=== PATIENT | male | born 1995 | race African-American/Black ===

== ENCOUNTER 2018-05-10 14:39 | Emergency (ER) | payer SELFPAY ==
[2018-05-10 14:52] VITALS: BP 132/77; PULSE 61; BMI 22.3
--- NOTE | 2018-05-10 15:14 | PDOC ---
History of Present Illness <Phi Jacques - Last Filed: 05/10/18 16:44> - General History Source: Patient Exam Limitations: No Limitations - History of Present Illness Initial Comments: 05/10/18 17:09 Patient is a 23-year-old male who presents emergency department today for a wound check to his right dorsal hand. Patient had surgical I&D done by Dr. Rodarte yesterday in our OR. Patient states that he did not want to stay for packing change today as he had things to do. Dr. Rodarte discharged him and told him to come to the ER for dressing change. Denies fevers, chills, purulent drainage, nausea and vomiting. Patient is currently taking clindamycin for the abscess. <Bree Costa - Last Filed: 05/10/18 17:13> - General Chief Complaint: Revisit,Wound Recheck Stated Complaint: REVISIT Time Seen by Provider: 05/10/18 14:48 Past History <Phi Jacques - Last Filed: 05/10/18 16:44> - Travel Traveled outside of the country in the last 30 days: No Close contact w/someone who was outside of country & ill: No - Past Medical History Asthma: Yes COPD: No - Immunization History Immunization Up to Date: Yes - Suicide/Smoking/Psychosocial Hx Smoking History: Never smoked Have you smoked in the past 12 months: No Information on smoking cessation initiated: No Hx Alcohol Use: No Drug/Substance Use Hx: Yes Substance Use Type: Marijuana <Bree Costa - Last Filed: 05/10/18 17:13> - Past Medical History Allergies/Adverse Reactions: Allergies Allergy/AdvReac Type Severity Reaction Status Date / Time No Known Allergies Allergy Verified 05/05/18 11:04 Home Medications: Ambulatory Orders Clindamycin HCl 300 mg PO TID #30 capsule 05/09/18 Ibuprofen 800 mg PO TID #30 tablet 05/10/18 Review of Systems - Review of Systems Able to Perform ROS?: Yes Comments:: 05/10/18 15:13 CONSTITUTIONAL: Absent: fever, chills, diaphoresis, generalized weakness, malaise, loss of appetite HEENT: Absent: rhinorrhea, nasal congestion, throat pain, throat swelling, difficulty swallowing, mouth swelling, ear pain, eye pain, visual Changes CARDIOVASCULAR: Absent: chest pain, loss of consciousness, palpitations, irregular heart rate, peripheral edema RESPIRATORY: Absent: cough, shortness of breath, dyspnea with exertion, orthopnea, wheezing, stridor, hemoptysis GASTROINTESTINAL: Absent: abdominal pain, abdominal distension, nausea, vomiting, diarrhea, constipation, melena, hematochezia GENITOURINARY: Absent: dysuria, frequency, urgency, hesitancy, hematuria, flank pain, genital pain MUSCULOSKELETAL: Absent: myalgia, arthralgia, joint swelling SKIN: Present: Bulky dressing to R hand. Absent: rash, itching, pallor HEMATOLOGIC/IMMUNOLOGIC: Absent: easy bleeding, easy bruising, lymphadenopathy, frequent infections ENDOCRINE: Absent: unexplained weight gain, unexplained weight loss, heat intolerance, cold intolerance NEUROLOGIC: Absent: headache, focal weakness or paresthesias, dizziness, unsteady gait, seizure, mental status changes, bladder or bowel incontinence PSYCHIATRIC: Absent: anxiety, depression, suicidal or homicidal ideation, hallucinations. Is the patient limited Moroccan proficient: No <Bree Costa - Last Filed: 05/10/18 17:13> *Physical Exam - Vital Signs Last Vital Signs Temp Pulse Resp BP Pulse Ox 61 17 132/77 100 05/10/18 14:47 05/10/18 14:47 05/10/18 14:47 05/10/18 14:47 <Phi Jacques - Last Filed: 05/10/18 16:44> - Vital Signs Last Vital Signs Temp Pulse Resp BP Pulse Ox 61 17 132/77 100 05/10/18 14:47 05/10/18 14:47 05/10/18 14:47 05/10/18 14:47 - Physical Exam Comments: 05/10/18 15:13 GENERAL: Well developed, well nourished. Awake and alert. No acute distress. NECK: Supple. Full ROM. No JVD. Carotid pulses 2+ and symmetric, without bruits. No thyromegaly. No lymphadenopathy. MUSCULOSKELETAL Normal range of motion at all joints. No bony deformities or tenderness. No CVA tenderness. EXTREMITIES: No cyanosis. No clubbing. No edema. No calf tenderness. SKIN: Two stitches present in the R dorsal hand with 2cm opening, packing in place. Serosanguanous discharge on packing. Warm and dry. Normal capillary refill. No rashes. No jaundice. NEUROLOGICAL: Alert, awake, appropriate. Cranial nerves 2-12 intact. No deficits to light touch and temperature in face, upper extremities and lower extremities. No motor deficits in the in face, upper extremities and lower extremities. Normoreflexic in the upper and lower extremities. Normal speech. Toes are down- going bilaterally. Gait is normal without ataxia. PSYCHIATRIC: Cooperative. Good eye contact. Appropriate mood and affect. <Bree Costa - Last Filed: 05/10/18 17:13> Medical Decision Making - Medical Decision Making 05/10/18 3:05pm Call placed to Dr. Satnam Rodarte, awaiting call back. 05/10/18 3:53 Second call placed to Dr. Satnam Rodarte, awaiting call back. 05/10/18 4:16pm Call returned from Dr. Rodarte, case was discussed. <Phi Jacques - Last Filed: 05/10/18 16:44> - Medical Decision Making 05/10/18 15:14 Pt is a 23 y/o M who presents for a wound check to his R hand s/p surgical drainage of a hand abscess by Dr. Rodarte. Pt states he needs his packing changed at this time -Pt able to flex and extend the hand. TTP of the R Dorsal hand. Two stitches in place with packing present to the R hand -Call placed to Dr. Rodarte to confirm care plan. 05/10/18 16:56 -Spoke with Dr. Rodarte. States he would like his patient to have the packing removed. He then recommends a dry dressing. -Packing was removed and dry dressing placed as per recommendation. Pt to keep his f/u with Dr. Rodarte for two weeks. -DC home -I discussed the physical exam findings, ancillary test results and final diagnoses with the patient. I answered all of the patient's questions. The patient was satisfied with the care received and felt comfortable with the discharge plan and treatment plan. The Patient agrees to follow up with the primary care physician/specialist within 24-72 hours. Return precautions were given. <Bree Costa - Last Filed: 05/10/18 17:13> *DC/Admit/Observation/Transfer - Attestations Scribe Attestion: 05/10/18 15:16 Documentation prepared by Phi Jacques, acting as medical care manager for TORRES Rawls. <Phi Jacques - Last Filed: 05/10/18 16:44> - Discharge Dispostion Decision to Admit order: No <Bree Costa - Last Filed: 05/10/18 17:13> Diagnosis at time of Disposition: Wound check, abscess - Discharge Dispostion Disposition: HOME Condition at time of disposition: Stable - Prescriptions Prescriptions: Ibuprofen 800 mg PO TID #30 tablet - Referrals Referrals: Jose Armando Rodarte MD [Staff Physician] - - Patient Instructions Printed Discharge Instructions: How to Care for a Surgical Wound, DI for Skin Abscess Additional Instructions: You had your packing removed today Change the dry dressing once a day You may purchase 4x4's at the pharmacy You may take 800mg of Motrin as needed for pain every 8 hours, not to exceed 3, 000mg a day Continue your antibiotics as previously prescribed Follow up with Dr. Rodarte as planned Return to the ED if you have worsening pain, fevers, or if you have any changes in your symptoms
[2018-05-10] MEDS ORDERED: IBUPROFEN 400 MG TABLET (FP) PO ONE ×2 (16:58→17:03)
== END 2018-05-10 17:09 | disposition home or self-care (01) ==
LOC: JERFT 14:39
DX: Z48.817 Encounter for surgical aftercare following surgery on the skin and subcutaneous tissue (principal); Z48.01 Encounter for change or removal of surgical wound dressing
CPT/HCPCS: 99281-25

== ENCOUNTER 2018-05-24 09:41 | Emergency (ER) | payer SELFPAY ==
[2018-05-24 09:49] VITALS: BP 114/81; PULSE 90; TEMP 98.5; BMI 25.7
--- NOTE | 2018-05-24 10:41 | PDOC ---
History of Present Illness - General Chief Complaint: Edema Stated Complaint: SWOLLEN FACE Time Seen by Provider: 05/24/18 10:34 Past History - Past Medical History Allergies/Adverse Reactions: Allergies Allergy/AdvReac Type Severity Reaction Status Date / Time Penicillins Allergy Verified 05/24/18 09:49 Home Medications: Ambulatory Orders Sulfamethoxazole/Trimethoprim [Bactrim Ds -] 1 tab PO BID #14 tablet 05/24/18 Asthma: Yes COPD: No - Immunization History Immunization Up to Date: Yes - Suicide/Smoking/Psychosocial Hx Smoking History: Never smoked Have you smoked in the past 12 months: No Hx Alcohol Use: No Drug/Substance Use Hx: Yes (MARIJUANA) Substance Use Type: Marijuana *Physical Exam - Vital Signs Last Vital Signs Temp Pulse Resp BP Pulse Ox 98.5 F 90 16 114/81 97 05/24/18 09:43 05/24/18 09:43 05/24/18 09:43 05/24/18 09:43 05/24/18 09:43 *DC/Admit/Observation/Transfer Diagnosis at time of Disposition: Cellulitis, face - Discharge Dispostion Disposition: HOME Condition at time of disposition: Stable Decision to Admit order: No - Prescriptions Prescriptions: Sulfamethoxazole/Trimethoprim [Bactrim Ds -] 1 tab PO BID #14 tablet - Referrals Referrals: Brian Roach MD [Staff Physician] - - Patient Instructions Printed Discharge Instructions: DI for Cellulitis -- Adult Additional Instructions: You have cellulitis. This is a skin infection. Please take the Bactrim twice a day for one week. Please take all the antibiotics even if you feel better. You may use warm water soaks to the area. Please do this approximately 4-5 times a day. Please avoid shaving the skin around the area of redness. You may take Motrin 800mg every 8 hours as needed for pain Please return to the ED in 1-2 days for a wound check Return to the emergency department if you have worsening redness, fevers, increasing pain, or have any changes in your symptoms. - Post Discharge Activity Forms/Work/School Notes: Back to Work
== END 2018-05-24 10:50 | disposition home or self-care (01) ==
LOC: JERFT 09:41
DX: L03.211 Cellulitis of face (principal)
CPT/HCPCS: 99281-25

== ENCOUNTER 2018-07-13 11:44 | Emergency (ER) | payer SELFPAY ==
[2018-07-13 11:54] VITALS: BP 140/75; PULSE 86; TEMP 98.2; BMI 26.5
--- NOTE | 2018-07-13 13:22 | PDOC ---
History of Present Illness - General Chief Complaint: Edema Stated Complaint: SWELLING,LIP Time Seen by Provider: 07/13/18 12:51 History Source: Patient Exam Limitations: No Limitations - History of Present Illness Initial Comments: 07/13/18 13:20 Patient patient is a 23-year-old male with no past medical history who presents to the emergency department today for cellulitis to his right upper lip. Patient states that he noticed the symptoms starting today. He states that the lip is hard and painful to the touch. Denies fevers, chills, mouth pain, difficulty chewing, nausea, vomiting and diarrhea. Past History - Travel Traveled outside of the country in the last 30 days: No Close contact w/someone who was outside of country & ill: No - Past Medical History Allergies/Adverse Reactions: Allergies Allergy/AdvReac Type Severity Reaction Status Date / Time Penicillins Allergy Verified 07/13/18 11:48 Home Medications: Ambulatory Orders Cephalexin Monohydrate [Keflex -] 500 mg PO BID #14 capsule 07/13/18 Sulfamethoxazole/Trimethoprim [Bactrim Ds -] 1 tab PO BID #14 tablet 07/13/18 Asthma: Yes COPD: No - Immunization History Immunization Up to Date: Yes - Suicide/Smoking/Psychosocial Hx Smoking History: Never smoked Have you smoked in the past 12 months: No Information on smoking cessation initiated: No Hx Alcohol Use: No Drug/Substance Use Hx: Yes (Marijuana) Substance Use Type: Marijuana Review of Systems - Review of Systems Able to Perform ROS?: Yes Comments:: 07/13/18 13:17 CONSTITUTIONAL: Absent: fever, chills, diaphoresis, generalized weakness, malaise, loss of appetite HEENT: Absent: rhinorrhea, nasal congestion, throat pain, throat swelling, difficulty swallowing, mouth swelling, ear pain, eye pain, visual Changes CARDIOVASCULAR: Absent: chest pain, loss of consciousness, palpitations, irregular heart rate, peripheral edema RESPIRATORY: Absent: cough, shortness of breath, dyspnea with exertion, orthopnea, wheezing, stridor, hemoptysis GASTROINTESTINAL: Absent: abdominal pain, abdominal distension, nausea, vomiting, diarrhea, constipation, melena, hematochezia GENITOURINARY: Absent: dysuria, frequency, urgency, hesitancy, hematuria, flank pain, genital pain MUSCULOSKELETAL: Absent: myalgia, arthralgia, joint swelling SKIN: Present: cellulitis to R upper lip Absent: rash, itching, pallor HEMATOLOGIC/IMMUNOLOGIC: Absent: easy bleeding, easy bruising, lymphadenopathy, frequent infections ENDOCRINE: Absent: unexplained weight gain, unexplained weight loss, heat intolerance, cold intolerance NEUROLOGIC: Absent: headache, focal weakness or paresthesias, dizziness, unsteady gait, seizure, mental status changes, bladder or bowel incontinence PSYCHIATRIC: Absent: anxiety, depression, suicidal or homicidal ideation, hallucinations. Is the patient limited Surinamese proficient: No *Physical Exam - Vital Signs Last Vital Signs Temp Pulse Resp BP Pulse Ox 98.2 F 86 16 140/75 99 07/13/18 11:49 07/13/18 11:49 07/13/18 11:49 07/13/18 11:49 07/13/18 11:49 - Physical Exam Comments: 07/13/18 13:18 GENERAL: Well developed, well nourished. Awake and alert. No acute distress. HEENT: Normocephalic, atraumatic. PERRLA, EOMI. No conjunctival pallor. Sclera are non- icteric. Moist mucous membranes. Oropharynx is clear. Swelling to the R upper lip. NECK: Supple. Full ROM. No JVD. Carotid pulses 2+ and symmetric, without bruits. No thyromegaly. No lymphadenopathy. SKIN: R upper lip is edematous, erythematous and indurated with open pus pocket. Does not infiltrate the buccal mucosa. Warm and dry. Normal capillary refill. No jaundice. NEUROLOGICAL: Alert, awake, appropriate. Cranial nerves 2-12 intact. No deficits to light touch and temperature in face, upper extremities and lower extremities. No motor deficits in the in face, upper extremities and lower extremities. Normoreflexic in the upper and lower extremities. Normal speech. Toes are down- going bilaterally. Gait is normal without ataxia. PSYCHIATRIC: Cooperative. Good eye contact. Appropriate mood and affect. Medical Decision Making - Medical Decision Making 07/13/18 13:20 Patient is a 23-year-old male who presents to emergency department today for swelling to his right upper lip. -On exam the right upper lip is hard, indurated and warm. This is consistent with cellulitis. -There is a head to the cellulitis. No fluctuance to drain however. -We'll prescribe Bactrim and Keflex at this time. Patient to do warm water soaks. -Primary care referral given. -Discharge home -I discussed the physical exam findings, ancillary test results and final diagnoses with the patient. I answered all of the patient's questions. The patient was satisfied with the care received and felt comfortable with the discharge plan and treatment plan. The Patient agrees to follow up with the primary care physician/specialist within 24-72 hours. Return precautions were given. *DC/Admit/Observation/Transfer Diagnosis at time of Disposition: Cellulitis, face - Discharge Dispostion Disposition: HOME Condition at time of disposition: Stable Decision to Admit order: No - Referrals Referrals: Brian Roach MD [Staff Physician] - - Patient Instructions Printed Discharge Instructions: DI for Cellulitis -- Adult Additional Instructions: You have cellulitis. This is a skin infection. Please take the Bactrim and Keflex twice a day for one week. Please take all the antibiotics even if you feel better. You may use warm water soaks to the area. Please do this approximately 4-5 times a day. Please avoid shaving the skin around the area of redness. You may take Tylenol or Motrin as needed for pain. Please follow up with your primary care doctor in 1 week. Return to the emergency department if you have worsening redness, fevers, increasing pain, or have any changes in your symptoms. - Post Discharge Activity Forms/Work/School Notes: Back to Work
== END 2018-07-13 13:28 | disposition home or self-care (01) ==
LOC: JERFT 11:44
DX: L03.211 Cellulitis of face (principal); K13.0 Diseases of lips
CPT/HCPCS: 99281-25

== ENCOUNTER 2018-12-29 11:05 | Emergency (ER) | payer SELFPAY ==
[2018-12-29 11:17] VITALS: BP 138/79; PULSE 86; TEMP 98.2; BMI 24.7
--- NOTE | 2018-12-29 12:35 | PDOC ---
History of Present Illness - General Chief Complaint: Abscess Boil Stated Complaint: ABCESS NOSE Time Seen by Provider: 12/29/18 12:16 History Source: Patient Exam Limitations: No Limitations Past History - Travel Traveled outside of the country in the last 30 days: No Close contact w/someone who was outside of country & ill: No - Past Medical History Allergies/Adverse Reactions: Allergies Allergy/AdvReac Type Severity Reaction Status Date / Time Penicillins Allergy Verified 12/29/18 11:13 Home Medications: Ambulatory Orders Cephalexin Monohydrate [Keflex -] 500 mg PO BID #14 capsule 07/13/18 Sulfamethoxazole/Trimethoprim [Bactrim Ds -] 1 tab PO BID #14 tablet 07/13/18 Cephalexin Monohydrate [Keflex -] 500 mg PO BID #14 capsule 12/29/18 Ibuprofen 600 mg PO Q6H #30 tablet 12/29/18 Sulfamethoxazole/Trimethoprim [Bactrim Ds -] 1 tab PO BID #14 tablet 12/29/18 Asthma: Yes COPD: No - Immunization History Immunization Up to Date: Yes - Suicide/Smoking/Psychosocial Hx Smoking History: Never smoked Have you smoked in the past 12 months: No Hx Alcohol Use: No Drug/Substance Use Hx: No Substance Use Type: Marijuana Review of Systems - Review of Systems Able to Perform ROS?: Yes Comments:: 12/29/18 12:32 CONSTITUTIONAL: Absent: fever, chills, diaphoresis, generalized weakness, malaise, loss of appetite HEENT: Absent: rhinorrhea, nasal congestion, throat pain, throat swelling, difficulty swallowing, mouth swelling, ear pain, eye pain, visual Changes SKIN: Present: rash Absent: itching, pallor HEMATOLOGIC/IMMUNOLOGIC: Present: frequent infections Absent: easy bleeding, easy bruising, lymphadenopathy NEUROLOGIC: Present: headache Absent: focal weakness or paresthesias, dizziness, unsteady gait, seizure, mental status changes, bladder or bowel incontinence PSYCHIATRIC: Absent: anxiety, depression, suicidal or homicidal ideation, hallucinations. Is the patient limited Wolof proficient: No *Physical Exam - Vital Signs Last Vital Signs Temp Pulse Resp BP Pulse Ox 98.2 F 86 18 138/79 99 12/29/18 11:14 12/29/18 11:14 12/29/18 11:14 12/29/18 11:14 12/29/18 11:14 - Physical Exam Comments: 12/29/18 12:32 GENERAL: Well developed, well nourished. Awake and alert. No acute distress. HEENT: Normocephalic, atraumatic. PERRLA, EOMI. No conjunctival pallor. Sclera are non- icteric. Moist mucous membranes. Oropharynx is clear. TTP over the maxillary sinuses. NECK: Supple. Full ROM. No JVD. Carotid pulses 2+ and symmetric, without bruits. No thyromegaly. No lymphadenopathy. No meningismus SKIN: Cellulitis and swelling over the tip of the nose to the R proximal nose. No fluctuance. Warm and dry. Normal capillary refill. No jaundice. NEUROLOGICAL: Alert, awake, appropriate. Cranial nerves 2-12 intact. No deficits to light touch and temperature in face, upper extremities and lower extremities. No motor deficits in the in face, upper extremities and lower extremities. Normoreflexic in the upper and lower extremities. Normal speech. Toes are down- going bilaterally. Gait is normal without ataxia. PSYCHIATRIC: Cooperative. Good eye contact. Appropriate mood and affect. ED Treatment Course - LABORATORY CBC & Chemistry Diagram: 12/29/18 12:16 12/29/18 14:25 Medical Decision Making - Medical Decision Making 12/29/18 16:32 The patient is a 23-year-old male with past medical history of cellulitis, who presents to the emergency department today for an infection to the tip of his nose. He states that this is presenting like his usual cellulitis however the pain is moving up his nose and he also has associated headache. He states that it started 2 days ago. Denies fevers, chills, difficulty breathing, shortness of breath, neck pain, nausea, vomiting and diarrhea. A/P: Cellulitis, rule out sinus thrombosis On exam patient with cellulitis to the tip of his nose extending to the proximal right nose with tenderness to palpation over the maxillary sinuses. Given that his cellulitis with associated headache as well as tenderness over the maxillary sinuses will rule out sinus thrombosis. Basic labs were ordered. Chem hemolyzed 2. Leukocytosis at 10.[address] with contrast ordered. CT shows no evidence of sinus thrombosis at this time We will treat as outpatient cellulitis with Bactrim and Keflex as patient has had good response to these in the past Infectious disease referral given as he has chronic cellulitis of the face Discharge home I discussed the physical exam findings, ancillary test results and final diagnoses with the patient. I answered all of the patient's questions. The patient was satisfied with the care received and felt comfortable with the discharge plan and treatment plan. The Patient agrees to follow up with the primary care physician/specialist within 24-72 hours. Return precautions were given. *DC/Admit/Observation/Transfer Diagnosis at time of Disposition: Cellulitis, face - Discharge Dispostion Disposition: HOME Condition at time of disposition: Stable Decision to Admit order: No - Prescriptions Prescriptions: Cephalexin Monohydrate [Keflex -] 500 mg PO BID #14 capsule Ibuprofen 600 mg PO Q6H #30 tablet Sulfamethoxazole/Trimethoprim [Bactrim Ds -] 1 tab PO BID #14 tablet - Referrals Referrals: Hnah Morocho MD [Staff Physician] - - Patient Instructions Printed Discharge Instructions: DI for Cellulitis -- Adult Additional Instructions: You have cellulitis. This is a skin infection. Please take the Bactrim and Keflex twice a day for one week. Please take all the antibiotics even if you feel better. You may use warm water soaks to the area. Please do this approximately 4-5 times a day. Please avoid shaving the skin around the area of redness. You may take Tylenol or Motrin as needed for pain. Please follow up with your primary care doctor in 1 week. Return to the emergency department if you have worsening redness, fevers, increasing pain, or have any changes in your symptoms. - Post Discharge Activity Forms/Work/School Notes: Back to Work
[2018-12-29 12:58] LABS: BASO % 0.6 % (0-2.0); EOS % 1.9 % (0-4.5); HEMATOCRIT 43.8 % (35.4-49); HEMOGLOBIN 14.7 GM/dL (11.7-16.9); LYMPH % 19.9 % (8-40); MCH 30.4 pg (25.7-33.7); MCHC 33.6 g/dl (32.0-35.9); MEAN CELL VOLUME 90.7 fl (80-96); MEAN PLT VOLUME 9.3 fl (7.5-11.1); MONO % 8.4 % (3.8-10.2); NEUT % 69.2 % (42.8-82.8); PLATELET COUNT 321 K/MM3 (134-434); RBC 4.83 M/mm3 (4.00-5.60); WHITE BLOOD COUNT 10.4 K/mm3 (4.0-10.0)
[2018-12-29 15:00] LABS: ALBUMIN 4.6 g/dl (3.4-5.0); ALK PHOS 71 U/L (45-117); ANION GAP 4 MMOL/L (8-16); BILIRUBIN,TOTAL 2.1 mg/dL (0.2-1); BLOOD UREA NITROGEN 9 mg/dL (7-18); CALCIUM 9.2 mg/dL (8.5-10.1); CHLORIDE 102 mmol/L (98-107); CO2 30 mmol/L (21-32); CREATININE 0.9 mg/dL (0.55-1.3); GLUCOSE,RANDOM 88 mg/dL (74-106); POTASSIUM 3.9 mmol/L (3.5-5.1); SGOT/AST 14 U/L (15-37); SGPT/ALT 19 U/L (13-61); SODIUM 137 mmol/L (136-145); TOT PROT 8.2 g/dl (6.4-8.2)
== END 2018-12-29 17:18 | disposition home or self-care (01) ==
LOC: JERFT 11:05
DX: J34.0 Abscess, furuncle and carbuncle of nose (principal); J45.909 Unspecified asthma, uncomplicated
CPT/HCPCS: 36415; 70488-TC; 80053; 85025; 99281-25

== ENCOUNTER 2021-05-18 14:11 | Emergency (ER) | payer SELFPAY ==
[2021-05-18 14:57] VITALS: BP 116/72; PULSE 82; TEMP 97.8; BMI 25.7
[2021-05-18] MEDS ORDERED: METHOCARBAMOL 500 MG TABLET PO ONE (17:22)
[2021-05-18] MEDS ORDERED: IBUPROFEN 400 MG TABLET (FP) PO ONE ×2 (17:22→17:33)
[2021-05-18] MEDS ORDERED: METHOCARBAMOL 500 MG TABLET ONE (17:33)
== END 2021-05-18 18:23 | disposition home or self-care (01) ==
LOC: JERFT 14:11 → JER 14:11 → JERFT 18:23
DX: M62.838 Other muscle spasm (principal)
CPT/HCPCS: 70450-TC; 99284-25

== ENCOUNTER 2021-09-13 15:09 | Emergency (ER) | payer SELFPAY ==
[2021-09-13] MEDS ORDERED: DIPHTH,PERTUSS(ACELL),TET 0.5 ML DISP.SYRIN IM ONE ×2 (15:21→15:35)
[2021-09-13] MEDS ORDERED: LIDOCAINE HCL 1%, 10 MG/ML (50 mL VIAL) SQ ONE (15:24)
[2021-09-13 15:33] VITALS: BP 126/75; PULSE 89; TEMP 97.8; BMI 25.1
== END 2021-09-13 16:35 | disposition home or self-care (01) ==
LOC: FER 15:09
PROC: 0HQGXZZ Repair Left Hand Skin, External Approach (ICD-10-PCS; principal; 2021-09-13)
PROC: 3E0234Z Introduction of Serum, Toxoid and Vaccine into Muscle, Percutaneous Approach (ICD-10-PCS; 2021-09-13)
DX: S61.211A Laceration without foreign body of left index finger without damage to nail, initial encounter (principal); S61.313A Laceration without foreign body of left middle finger with damage to nail, initial encounter; W26.0XXA Contact with knife, initial encounter; Y92.89 Other specified places as the place of occurrence of the external cause
CPT/HCPCS: 90715; 99283-25

== ENCOUNTER 2021-09-27 12:27 | Emergency (ER) | payer SELFPAY ==
[2021-09-27 13:00] VITALS: BP 112/65; PULSE 70; TEMP 98.1; BMI 24.7
== END 2021-09-27 14:02 | disposition home or self-care (01) ==
LOC: JERFT 12:27
DX: Z48.02 Encounter for removal of sutures (principal)
CPT/HCPCS: 99281-25

== ENCOUNTER 2022-07-11 02:32 | Emergency (ER) | payer OTHER ==
[2022-07-11 02:43] VITALS: BP 143/90; PULSE 86; RESP 18; TEMP 97.6; BMI 24.5
[2022-07-11] MEDS ORDERED: KETOROLAC TROMETHAMINE 30 MG/1 ML VIAL IM ONE (03:19)
[2022-07-11] MEDS ORDERED: KETOROLAC TROMETHAMINE 30 MG/1 ML VIAL ONE (03:37)
[2022-07-11] MEDS ORDERED: IBUPROFEN 600 MG TABLET (FP) PO ONE (03:43)
[2022-07-11] MEDS ORDERED: IBUPROFEN 400 MG TABLET (FP) PO ONE (03:43)
== END 2022-07-11 04:29 | disposition home or self-care (01) ==
LOC: JER 02:32
PROC: 3E0233Z Introduction of Anti-inflammatory into Muscle, Percutaneous Approach (ICD-10-PCS; principal; 2022-07-11)
DX: K08.89 Other specified disorders of teeth and supporting structures (principal)
CPT/HCPCS: 96372; 99283-25

== ENCOUNTER 2024-04-02 10:59 | Emergency (ER) | payer OTHER ==
[2024-04-02 11:04] VITALS: BP 114/76; PULSE 89; RESP 20; TEMP 98; BMI 27.4
[2024-04-02] MEDS ORDERED: IBUPROFEN 600 MG TABLET (FP) PO ONE (11:46)
[2024-04-02] MEDS ORDERED: CLINDAMYCIN HCL 150 MG CAPSULE (FP) ONE (11:46)
[2024-04-02] MEDS: CLINDAMYCIN HCL 150 MG CAPSULE (FP) PO ONE (11:49)
[2024-04-02] MEDS: IBUPROFEN 600 MG TABLET (FP) PO ONE (11:49)
== END 2024-04-02 12:00 | disposition home or self-care (01) ==
LOC: JERFT 10:59
DX: K02.9 Dental caries, unspecified (principal); K08.89 Other specified disorders of teeth and supporting structures
CPT/HCPCS: 99283-25

== ENCOUNTER 2024-07-05 17:11 | Emergency (ER) | payer OTHER ==
[2024-07-05 17:25] VITALS: BP 133/76; PULSE 74; RESP 20; TEMP 97.7; BMI 24.0
[2024-07-05] MEDS ORDERED: IBUPROFEN 600 MG TABLET (FP) PO ONE (18:17)
[2024-07-05] MEDS: IBUPROFEN 600 MG TABLET (FP) PO ONE (18:20)
== END 2024-07-05 18:34 | disposition home or self-care (01) ==
LOC: JERFT 17:11
DX: S83.91XA Sprain of unspecified site of right knee, initial encounter (principal); X50.9XXA Other and unspecified overexertion or strenuous movements or postures, initial encounter
CPT/HCPCS: 73562-TC-RT-FY; 99283-25

== ENCOUNTER 2024-12-26 13:08 | Day surgery (SDC) | payer OTHER ==
[2024-12-26 07:59] VITALS: BMI 24.9
[2024-12-26] MEDS ORDERED: BUPIVACAINE HCL/PF 0.5% (5 MG/ML) 30 ML VIAL IJ ONE (14:18)
[2024-12-26] MEDS ORDERED: DEXAMETHASONE SOD PHOSPHATE 10 MG/1 ML VIAL ONE (14:18)
[2024-12-26] MEDS ORDERED: ACETAMINOPHEN INJECTION 100 ML ONE ×2 (14:18→17:00)
[2024-12-26] MEDS ORDERED: MIDAZOLAM HCL 2 MG/2 ML SINGLE DOSE VIAL ONE ×3 (14:18→17:28)
[2024-12-26] MEDS ORDERED: EPINEPHrine 1:1,000 1,000 MCG/ML ML ONE (15:30)
[2024-12-26] MEDS ORDERED: BUPIVACAINE HCL/PF 2.5 MG/ML - 30 ML VIAL IJ ONE (15:31)
[2024-12-26] MEDS ORDERED: oxyCODONE HCL 5 MG TABLET PO PRN ×2 (15:36)
[2024-12-26] MEDS ORDERED: LACTATED RINGERS SOLUTION 1,000 ML IV SCH (15:45)
[2024-12-26] MEDS ORDERED: PROPOFOL 20 ML ONE (16:37)
[2024-12-26] MEDS ORDERED: ceFAZolin SODIUM 1 GM VIAL ONE (16:47)
[2024-12-26] MEDS ORDERED: KETOROLAC TROMETHAMINE 30 MG/1 ML VIAL ONE (16:47)
[2024-12-26] MEDS ORDERED: ONDANSETRON 4 MG/2 ML VIAL ONE ×3 (16:47→20:24)
[2024-12-26] MEDS ORDERED: DEXAMETHASONE SOD PHOSPHATE 4 MG/1 ML VIAL ONE (16:47)
[2024-12-26] MEDS ORDERED: TRANEXAMIC ACID 1000 MG/10 ML VIAL ONE (16:47)
[2024-12-26] MEDS ORDERED: VANCOMYCIN 1,000 MG VIAL (RESTRICTED TO ID ONLY) ONE (16:54)
[2024-12-26] MEDS ORDERED: HYDROmorphone HCL/PF 1 MG/ML VIAL ONE (18:08)
[2024-12-26 19:58] VITALS: TEMP 98.7
[2024-12-26] MEDS: ONDANSETRON 4 MG/2 ML VIAL IVPUSH PRN (20:25)
[2024-12-26 20:29] VITALS: RESP 16
[2024-12-26 20:46] VITALS: PULSE 65
[2024-12-26 20:59] VITALS: BP 116/72
== END 2024-12-26 21:46 | disposition home or self-care (01) ==
LOC: FASU 13:08 → FM/S 21:27 → FASU 21:46
PROVIDERS: ATTEND Orthopaedic Surgery Sports Medicine
PROC: 0MRN47Z Replacement of Right Knee Bursa and Ligament with Autologous Tissue Substitute, Percutaneous Endoscopic Approach (ICD-10-PCS; principal; 2024-12-26 17:16)
DX: S83.511A Sprain of anterior cruciate ligament of right knee, initial encounter (principal); S83.281A Other tear of lateral meniscus, current injury, right knee, initial encounter; M65.961 Unspecified synovitis and tenosynovitis, right lower leg; X58.XXXA Exposure to other specified factors, initial encounter; Y93.9 Activity, unspecified; Y92.9 Unspecified place or not applicable
CPT/HCPCS: 29881; 29888; C1713; 73560-TC-RT-FY; 94760; C1768; J0131; J1100